=== PATIENT | female | born 1970 | race Caucasian/White ===

== ENCOUNTER 2021-12-15 20:35 | Emergency (ER) | payer OTHER ==
[~2021-12-15] VITALS: Ht 154.9 cm; Wt 62.3 kg
[2021-12-15] MEDS ORDERED: ACETAMINOPHEN 500 MG TABLET PO ONE (22:00)
[2021-12-15] MEDS ORDERED: IBUPROFEN 600 MG TABLET PO ONE (22:00)
[2021-12-15] MEDS ORDERED: IBUP-1554 PO (23:01)
[2021-12-15] MEDS ORDERED: ACET-66 PO (23:01)
[2021-12-15 23:18] VITALS: BP 123/85
== END 2021-12-15 23:21 | disposition home or self-care (01) ==
LOC: EMS 20:36
DX: S60.221A Contusion of right hand, initial encounter (principal); W22.01XA Walked into wall, initial encounter; Y93.89 Activity, other specified; Y92.89 Other specified places as the place of occurrence of the external cause; Y99.8 Other external cause status
CPT/HCPCS: 99283

== ENCOUNTER 2022-06-10 21:49 | Emergency (ER) | payer OTHER ==
[~2022-06-10] VITALS: Ht 157.5 cm; Wt 63.6 kg
[~2022-06-10 21:49] MED LIST: ACET-66 PO; IBUP-1554 PO
[2022-06-10 22:53] LABS: BASOPHILS % (AUTO) 0.4 % (0.0-2.0); EOSINOPHILS % (AUTO) 0.5 % (1.0-6.0); HEMATOCRIT 38.3 % (36-46); HEMOGLOBIN 12.8 g/dL (12.0-16.0); LYMPHOCYTES # (AUTO) 1.8 K/uL (1.0-4.8); LYMPHOCYTES % (AUTO) 38.3 % (22.0-44.0); MEAN CORPUSCULAR HEMOGLOBIN 32.6 pg (26.0-34.0); MEAN CORPUSCULAR HGB CONC 33.5 G/dL (31.0-37.0); MEAN CORPUSCULAR VOLUME 97 fL (80-100); MONOCYTES # (AUTO) 0.3 K/uL (0.1-1.0); MONOCYTES % (AUTO) 5.8 % (2.0-9.0); NEUTROPHILS # (AUTO) 2.5 K/uL (1.8-7.7); PLATELET COUNT (AUTO) 238 K/uL (150-450); RED BLOOD CELL COUNT(AUTO) 3.93 MIL/uL (4.00-5.20); RED CELL DISTRIBUTION WIDTH 13.7 % (11.5-14.5)
[2022-06-10 23:02] LABS: ANION GAP 13 mmol/L (8-16); CALCIUM, TOTAL 8.5 mg/dL (8.8-10.5); CARBON DIOXIDE 24 mmol/L (22-29); CHLORIDE 103 mmol/L (98-107); CREATININE 0.59 mg/dL (0.60-1.30); GLOMERULAR FILTR. RATE CALC > 60 mL/min (>60); GLUCOSE,RANDOM 109 mg/dL (70-110); POTASSIUM 3.7 mmol/L (3.5-5.1); SODIUM SERUM 140 mmol/L (136-145); UREA NITROGEN, BLOOD 7 mg/dL (7-18)
[2022-06-10 23:13] LABS: ALANINE AMINOTRANSFERASE 34 U/L (12-78); ALBUMIN 3.8 g/dL (3.4-5.0); ALKALINE PHOSPHATASE 94 U/L (46-116); ASPARTATE AMINOTRANSFERASE 50 U/L (15-37); BILIRUBIN,TOTAL 0.3 mg/dL (0.1-1.0); HCG,QUANTITATIVE < 1 mIU/mL (0-6); LIPASE 75 U/L (73-393); TOTAL PROTEIN, SERUM 7.6 g/dL (6.4-8.2)
[2022-06-10 23:38] VITALS: BP 173/98
[2022-06-11] MEDS ORDERED: FAMOTIDINE 40 MG in SODIUM CHLORIDE 0.9% 100 ML IV ONE (00:15)
[2022-06-11] MEDS ORDERED: SODIUM CHLORIDE 0.9% 1,000 ML IV ONE (00:15)
[2022-06-11] MEDS ORDERED: SODIUM CHLORIDE 0.9% 100 ML ONE ×2 (00:57→00:58)
[2022-06-11] MEDS ORDERED: FAMOTIDINE 10 MG/ML 2 ML VIAL ONE (00:58)
[2022-06-11] MEDS ORDERED: FAMO20 PO (03:04)
== END 2022-06-11 03:20 | disposition home or self-care (01) ==
LOC: EMS 21:49
DX: R10.11 Right upper quadrant pain (principal); R10.13 Epigastric pain
CPT/HCPCS: 99285; 80053; 83690; 84702; 85025; 36415; 96365; 76705; 96361; 74022; J3490; J7030; J7050